=== PATIENT | male | born 1940 | race Asian ===

== ENCOUNTER 2019-10-08 15:23 | Emergency (ER) | payer OTHER ==
[~2019-10-08] VITALS: Ht 172.7 cm; Wt 70.3 kg
[2019-10-08 15:24] VITALS: Ht 172.7 cm; Wt 70.3 kg
[2019-10-08 15:53] VITALS: BP 127/87
[2019-10-08 16:14] LABS: BASOPHIL % 1.2 % (0-2); PLATELET COUNT 258 x10^3mcL (130-400)
[2019-10-08 16:16] LABS: RED CELL DISTRIBUTION WIDTH 16.9 % (11.5-14.5)
[2019-10-08 16:26] LABS: CALCIUM 8.2 mg/dL (8.5-10.1); CARBON DIOXIDE 24.4 mmol/L (21-32); CHLORIDE SERUM 106 mmol/L (98-107); GLUCOSE SERUM 135 mg/dL (74-106); POTASSIUM SERUM 4.4 mmol/L (3.5-5.1); SODIUM SERUM 142 mmol/L (136-145)
[2019-10-08 16:31] LABS: ALBUMIN 3.4 g/dL (3.4-5.0); ALKALINE PHOSPHATASE 68 U/L (46-116); ALT/SGPT 26 U/L (16-63); AST/SGOT 14 U/L (15-37); BILIRUBIN TOTAL 0.24 mg/dL (0.20-1.00); CHOLESTEROL 226 mg/dL (<200)
== END 2019-10-08 17:45 | disposition home or self-care (01) ==
LOC: ED 15:23
PROVIDERS: Specialist
DX: G51.0 Bell's palsy (principal); F17.210 Nicotine dependence, cigarettes, uncomplicated
CPT/HCPCS: 36415; G0480; J7512